=== PATIENT | male | born 1980 | race Caucasian/White ===

== ENCOUNTER 2017-07-01 17:16 | Emergency (ER) | payer OTHER ==
[2017-07-01 17:29] VITALS: BP 138/95
[2017-07-01 17:57] LABS: PLATELET COUNT 252 10^3/uL (150-400)
--- NOTE | 2017-07-01 17:58 | EDPHY ---
H & P Stated Complaint: right thigh swelling after testosterone injection on tuesday Time Seen by Provider: 07/01/17 17:21 HPI/ROS: 36 yo M presents c/o injected his right thigh with his routine testosterone initially it was very painful, this was on Tuesday, he thought he had maybe injected a nerve, he began having swelling which has continued, and is quite painful. He has a hx of compartment syndrome in that thigh many years ago secondary to a hematoma that developed into an abscess. Review of systems As per HPI General no fever no chills no weakness HEENT no eye pain no eye discharge. No eye redness, no sore throat Respiratory no cough, no shortness of breath Cardiac no chest pain, no peripheral edema GI no abdominal pain, no diarrhea, no constipation, no nausea, no vomiting no flank pain, no hematuria, no dysuria Musculoskeletal positive myalgias, no joint pain Heme no easy bruising, no easy bleeding Endo no polyuria, no polydipsia Skin no rashes, no pruritus Neuro no syncope, no dizziness, no headaches Psych is no suicidal ideation, no homicidal ideation Source: Patient - Personal History Current Tetanus Diphtheria and Acellular Pertussis (TDAP): Yes Tetanus Vaccine Date: within 10 yrs - Medical/Surgical History Hx Asthma: No Hx Chronic Respiratory Disease: No Hx Diabetes: No Hx Cardiac Disease: No Hx Renal Disease: No Hx Cirrhosis: No Hx Alcoholism: No Other PMH: SHOULDER SURG, COMPARTMENT SYN RIGH LEG WITH SURG - Family History Significant Family History: No pertinent family hx - Social History Smoking Status: Never smoked Alcohol Use: Occasionally Drug Use: None - Physical Exam Exam: 36 yo M alert and oriente din nad, non toxic appearance afebrile at,nc no resp distress neck no jvd lungs cta bilat heart rrr ext no discoloration, no ecchymoses distal pulses intact right thigh at lateral thigh linear healed scar approximately 15 cm in length adjacent to scar at distal most aspect ttp with area of swelling approx 2 x 10 cm no discoloration, not pulsatile no posterior thigh or calf pain or swelling Constitutional: Initial Vital Signs Temperature (C) 37.0 C 07/01/17 17:23 Heart Rate 101 H 07/01/17 17:23 Respiratory Rate 18 07/01/17 17:23 Blood Pressure 138/95 H 07/01/17 17:23 O2 Sat (%) 96 07/01/17 17:23 O2 Delivery Mode Room Air Allergies/Adverse Reactions: adhesive tape Allergy (Verified 07/01/17 17:22) Home Medications: Medication Instructions Recorded Adderall 10 MG (*) 07/01/17 Testosterone 07/01/17 Wellbutrin 100mg (*) 07/01/17 Medical Decision Making - Diagnostics Imaging Results: Imaging Impressions Extremity Ultrasound 07/01/17 17:36 Impression: No evidence of hematoma, abscess, or definite mass in the right lateral thigh region. Consider additional imaging if clinically indicated. Findings and recommendations discussed with Emergency Department physician, Dr. Marylou Love at 1837 hours on July 01, 2017. Final report concurs with initial preliminary interpretation. ED Course/Re-evaluation: Pt seen and evaluted for right thigh pain following self-injection with testosterone. Lab sent CBC WBC 12, normal H&H normal platelets CPK within normal limits BMP no acidosis normal creatinine Ultrasound right thigh No evidence of fluid collection no evidence for abscess or hematoma Impression Right thigh pain, likely local inflammation at site of injection Plan Discharge home Ibuprofen p.r.n. Heat p.r.n. Return as needed for worsening swelling, fever or severe pain. Follow-up with primary care physician Differential Diagnosis: Differential diagnosis considered but not limited to and in no particular order: Cellulitis, hematoma, necrotizing fascitis, compartment syndrome, local inflammation - Data Points Laboratory Results: Laboratory Results 07/01/17 17:54 07/01/17 17:54 07/01/17 07/01/17 17:54 17:54 WBC 12.45 10^3/uL H 10^3/uL (3.80-9.50) RBC 5.37 10^6/uL 10^6/uL (4.40-6.38) Hgb 16.8 g/dL g/dL (13.7-17.5) Hct 48.5 % % (40.0-51.0) MCV 90.3 fL fL (81.5-99.8) MCH 31.3 pg pg (27.9-34.1) MCHC 34.6 g/dL g/dL (32.4-36.7) RDW 12.1 % % (11.5-15.2) Plt Count 252 10^3/uL 10^3/uL (150-400) MPV 9.3 fL fL (8.7-11.7) Neut % (Auto) 75.3 % H % (39.3-74.2) Lymph % (Auto) 16.5 % % (15.0-45.0) [place] % (Auto) 6.8 % % (4.5-13.0) Eos % (Auto) 0.8 % % (0.6-7.6) Baso % (Auto) 0.3 % % (0.3-1.7) Nucleat RBC Rel Count 0.0 % % (0.0-0.2) Absolute Neuts (auto) 9.36 10^3/uL H 10^3/uL (1.70-6.50) Absolute Lymphs (auto) 2.06 10^3/uL 10^3/uL (1.00-3.00) Absolute Monos (auto) 0.85 10^3/uL H 10^3/uL (0.30-0.80) Absolute Eos (auto) 0.10 10^3/uL 10^3/uL (0.03-0.40) Absolute Basos (auto) 0.04 10^3/uL 10^3/uL (0.02-0.10) Absolute Nucleated RBC 0.00 10^3/uL 10^3/uL (0-0.01) Immature Gran % 0.3 % % (0.0-1.1) Immature Gran # 0.04 10^3/uL 10^3/uL (0.00-0.10) Sodium 138 mEq/L mEq/L (135-145) Potassium 3.8 mEq/L mEq/L (3.5-5.2) Chloride 99 mEq/L mEq/L (97-110) Carbon Dioxide 30 mEq/l mEq/l (22-31) Anion Gap 9 mEq/L mEq/L (8-16) BUN 19 mg/dL mg/dL (7-23) Creatinine 1.0 mg/dL mg/dL (0.7-1.3) Estimated GFR > 60 Glucose 95 mg/dL mg/dL (70-100) Calcium 8.9 mg/dL mg/dL (8.5-10.4) Creatine Kinase 161 IU/L IU/L (0-224) Departure - Departure Disposition: Home, Routine, Self-Care Clinical Impression: Right thigh pain Condition: Good Instructions: Leg Pain (ED) Additional Instructions: Return for worsening swelling, pain, fever. Ibuprofen for pain Heat to painful area. Referrals: [facility] SHORT [Primary Care Provider] - As per Instructions
[2017-07-01 18:11] LABS: CREATINE KINASE 161 IU/L (0-224)
== END 2017-07-01 19:13 | disposition home or self-care (01) ==
LOC: CED 17:16
DX: M79.651 Pain in right thigh (principal)
CPT/HCPCS: 76882-PO; 80048-PO; 82550-PO; 85025-PO